=== PATIENT | female | born 1940 | race African-American/Black ===

== ENCOUNTER → 2016-09-03 | Outpatient (CLI) | payer OTHER ==
[2015-03-07 10:37] VITALS: BP 99/39
[~2016-09-03] MED LIST: ASPI81TA2 PO; ATOR20TA58 PO; ATROVENT HFA12.9 GM INH; DOCU100C5 PO; FURO80TA3 PO; GABA-587 PO; GLYB5TAB3 PO; INSU100C SQ; INSU100V8 SQ; LORA0.5T96 PO; METF500T4 PO; METH500T7 PO; METO25TA4 PO; PANT40TA5 PO; POTA20TA12 PO; VALS160T21 PO; [UNRECOGNIZED DRUG - CODE] TP
--- NOTE | 2016-09-03 15:53 | KCIC ---
PROCEDURE MR of the left thigh HISTORY Pain of the mid left thigh medially, occasionally posteriorly. No known injury. TECHNIQUE Standard noncontrast images are obtained. COMPARISON None FINDINGS No evidence of acute muscle abnormality. No soft tissue fluid collection or edema. No evidence of mass lesion. No bone lesion, acute fracture, marrow edema or periosteal reaction. IMPRESSION No acute findings are identified in the left thigh. Electronically signed by: Kody Solomon MD (Sep 03, 2016 15:51:58)
== END | disposition home or self-care (01) ==
LOC: KCIC MRI 14:21
PROVIDERS: ATTEND Family Medicine
DX: M79.652 Pain in left thigh (principal)
CPT/HCPCS: 73718